=== PATIENT | female | born 1955 | race Caucasian/White ===

== ENCOUNTER 2019-01-28 12:11 | Day surgery (SDC) | payer OTHER ==
[~2019-01-28] VITALS: Ht 165.1 cm; Wt 60.4 kg
[~2019-01-28 12:11] MED LIST: CLONAZEPAM; LEVO-86 PO; SIMVASTATIN; TYLENOL-CODEINE
[2019-01-28 12:42] VITALS: Ht 165.1 cm; Wt 60.4 kg
[2019-01-28 14:13] VITALS: BP 139/63; PULSE 47; RESP 16
[2019-01-28] MEDS ORDERED: PROPOFOL 40 ML ONE (14:33)
[2019-01-28] MEDS ORDERED: GLYCOPYRROLATE 0.4 MG INJ ONE (14:33)
[2019-01-28 14:59] VITALS: BP 113/61; PULSE 56; RESP 15
== END 2019-01-28 16:03 | disposition home or self-care (01) ==
LOC: GIL 12:11
PROVIDERS: ATTEND Internal Medicine Gastroenterology
DX: K20.9 Esophagitis, unspecified (principal); E03.9 Hypothyroidism, unspecified
CPT/HCPCS: 88305; 88312; 88313